=== PATIENT | female | born 1935 | race Caucasian/White ===

== ENCOUNTER 2018-12-13 11:48 | Inpatient (IN) | payer MEDICARE, BC ==
[~2018-12-13] VITALS: Ht 162.6 cm; Wt 70.7 kg
[2018-12-13] MEDS ORDERED: PROZAC20 MG PO (11:56)
[2018-12-13] MEDS ORDERED: HALCION0.25 MG PO (11:57)
[2018-12-13] MEDS ORDERED: GABAPENTIN100 MG PO (11:57)
[2018-12-13] MEDS ORDERED: NORVASC5 MG PO (11:57)
[2018-12-13] MEDS ORDERED: BAYER CHEWABLE81 MG PO (11:57)
[2018-12-13] MEDS ORDERED: VITAMIN D2000 UNIT PO (11:58)
[2018-12-13] MEDS ORDERED: PRAVACHOL20 MG PO (11:58)
[2018-12-13] MEDS ORDERED: PROBIOTIC1 EAC1 PO (11:58)
[2018-12-13] MEDS ORDERED: MAGNESIUM OXID250 MG PO (11:58)
[2018-12-13 12:20] VITALS: BP 189/80
[2018-12-13 12:23] LABS: BASOPHILS 0.4 % (0-2); EOSINOPHILS 0.3 % (0-7); HEMATOCRIT 44.7 % (36.0-48.0); HEMOGLOBIN 15.5 g/dL (12-16); IMMATURE GRANULOCYTES 0.3 % (0-5); LYMPHOCYTES 20.4 % (15-50); MCH 31.8 pg (26.0-34.0); MCHC 34.7 g/dL (31.0-37.0); MCV 91.6 fL (80.0-100.0); MEAN PLATELET VOLUME 8.7 fL (7.4-10.4); MONOCYTES 6.3 % (2-11); NEUTROPHILS 72.3 % (40-80); PLATELET COUNT 342 10x3/uL (130-400); RBC 4.88 10x6/uL (4.00-5.40); RDW 12.6 % (11.5-14.5); WBC 7.8 10x3/uL (4.8-10.8)
[2018-12-13 12:38] LABS: ALBUMIN 4.2 g/dL (3.4-5.0); ANION GAP 14.7 mmol/L (8-16); BILIRUBIN - TOTAL 1.12 mg/dL (0.2-1.3); CALCIUM 9.9 mg/dL (8.5-10.1); CARBON DIOXIDE 27.6 mmol/L (21.0-32.0); CREATININE - SERUM 0.9 mg/dL (0.6-1.3); POTASSIUM - SERUM 4.3 mmol/L (3.5-5.1); PROTEIN - SERUM 8.3 g/dL (6.4-8.2)
[2018-12-13 12:48] LABS: MAGNESIUM - SERUM 2.7 mg/dL (1.8-2.4); THYROID STIMULATING HORMONE 3.34 uIU/mL (0.36-3.74)
[2018-12-13 13:00] VITALS: BP 155/72
[2018-12-13 13:36] LABS: UDS - AMPHET NEGATIVE QUAL (NEGATIVE); UDS - BARB NEGATIVE QUAL (NEGATIVE); UDS - BENZO POSITIVE QUAL (NEGATIVE); UDS - COCAINE NEGATIVE QUAL (NEGATIVE); UDS - OPIATE NEGATIVE QUAL (NEGATIVE); UDS - PCP NEGATIVE QUAL (NEGATIVE); UDS - THC NEGATIVE QUAL (NEGATIVE)
[2018-12-13 13:37] LABS: APPEARANCE CLEAR (CLEAR); BILIRUBIN NEGATIVE (NEGATIVE); COLOR YELLOW (YELLOW); GLUCOSE NEGATIVE (NEGATIVE); KETONE MODERATE mg/dL (NEGATIVE); NITRITE NEGATIVE (NEGATIVE); PROTEIN NEGATIVE (NEGATIVE); UROBILINOGEN NORMAL (NORMAL)
[2018-12-13 13:40] VITALS: BP 164/74
--- NOTE | 2018-12-13 15:30 | NUR ---
The patient is awake, but she is not providing good eye contact. At this time she is speaking in third person. She realizes she needs help, but she doesn't want to admit that she is depressed. The family brings her here today because they have seen a rapid decline in her behavior. She is not sleeping, eating, or participating in any of her normal activities. The family states she did have an evaluation by Dr. Shields yesterday. She does not have a living will or a POA. Her resuscitation status is full code. She does have smone bruises on the wrists from lab draws over the past couple of days. She did provide her wedding band to her to take home. Did go over the visitation times and days and phone call times and days. Her code word is [place]. At this time she is in the dining room, she is sitting away from the other patients.
[2018-12-13 16:02] VITALS: BP 180/81; BMI 28.4
[2018-12-13] MEDS ORDERED: NEURONTIN 300300 MG PO (17:03)
[2018-12-13 17:21] LABS: CHOL - HDL RATIO 2.5 ratio (2.3-4.1); LDL-HDL RATIO 1.2 ratio (1.5-3.5)
[2018-12-13 20:00] VITALS: BP 144/74
[2018-12-13 21:30] VITALS: BMI 28.5
--- NOTE | 2018-12-13 23:08 | NUR ---
PATIENT IS STAYING TO HERSELF, COMPLIANT WITH MEDS, DENIES S/I, POOR EYE CONTACT. WILLL FOLLOW POC
[2018-12-14 06:13] LABS: BASOPHILS 0.3 % (0-2); EOSINOPHILS 0.2 % (0-7); HEMATOCRIT 39.9 % (36.0-48.0); HEMOGLOBIN 13.8 g/dL (12-16); IMMATURE GRANULOCYTES 0.3 % (0-5); LYMPHOCYTES 13.3 % (15-50); MCH 31.2 pg (26.0-34.0); MCHC 34.6 g/dL (31.0-37.0); MCV 90.3 fL (80.0-100.0); MEAN PLATELET VOLUME 8.6 fL (7.4-10.4); MONOCYTES 8.5 % (2-11); NEUTROPHILS 77.4 % (40-80); PLATELET COUNT 365 10x3/uL (130-400); RBC 4.42 10x6/uL (4.00-5.40); RDW 12.5 % (11.5-14.5); WBC 9.5 10x3/uL (4.8-10.8)
[2018-12-14 06:41] LABS: ALBUMIN 3.5 g/dL (3.4-5.0); BILIRUBIN - TOTAL 1.2 mg/dL (0.2-1.3); CALCIUM 9.1 mg/dL (8.5-10.1); CARBON DIOXIDE 23.1 mmol/L (21.0-32.0); CHOL - HDL RATIO 2.2 ratio (2.3-4.1); CREATININE - SERUM 0.9 mg/dL (0.6-1.3); POTASSIUM - SERUM 4.1 mmol/L (3.5-5.1); PROTEIN - SERUM 7.1 g/dL (6.4-8.2)
[2018-12-14 08:08] VITALS: BP 173/93
[2018-12-14 08:33] VITALS: Ht 162.6 cm; Wt 70.7 kg
--- NOTE | 2018-12-14 08:47 | NUR ---
The patient is anxious, her pulse is 112, she is not able to state how she feels except to admit that she is depressed and knows she needs help. She didn't really want to take an ativan, but did explain to her that it will help her anxiety. She said "Ok." Ativan 0.5 mg PO provided.
--- NOTE | 2018-12-14 09:40 | NUR ---
The patient is less anxious at this time. Asked her if she felt better. She said "Sleepy." She did not go to sleep.
[2018-12-14 09:56] VITALS: BP 173/93
--- NOTE | 2018-12-14 11:13 | NUR ---
B) The patient is awake, she is oriented, but she is depressed with anxiety. She does not know what she is doing, she is in a w/c because she is unsteady. She self propels. She keeps going up to the other patients and trying to straighten their blanket. I) Provide prescribed meds. R) The patient is compliant with meds. P) Continue POC.
--- NOTE | 2018-12-14 12:07 | NUR ---
The patient said "I need to take care of him." But there is no one in the direction sheis looking, she then got up quickly from the w/c and started walking into the dining room and said "I just need to help." Tried to explain to her that she did not need to help anyone that she would be ok, she just needs to give the Dr. and nurses a little time. She said "I know, I know." Asked her if it is ok to be here in the hospital to get some help and she said Well, I don't know, it's terrible." She then said "I need help, yes." Provided Ativan 0.5 mg PO
--- NOTE | 2018-12-14 13:00 | NUR ---
The patient is tearful at times and this nurse has sat with her to explain that she is in the hospital and that the Dr. will get medication to help and that she needs to be patient. She said "Yes, yes." She also said "I don't like being out of control." I said "You don't like being out of control?" She said "No, I'm not a controller."
--- NOTE | 2018-12-14 15:22 | NUR ---
Explained to the patient that the has prescribed Lexapro for her depression and she said "I'm not taking it." She looks at staff and then when staff look at her she turns her head.
[2018-12-14 20:00] VITALS: BP 150/67
--- NOTE | 2018-12-15 00:04 | NUR ---
PATIENT IS VERY CONFUSED. HALDOL AND ATIVAN GIVEN IM @ 2020 FOR SEVERE AGITATION, TOUCHING OTHER PATIENTS, PUSHING OBJECTS AROUND. GOOD RESULTS. WILL MONITOR
[2018-12-15 07:00] VITALS: BP 163/79
--- NOTE | 2018-12-15 09:40 | PSY ---
PATIENT NAME:TOBY KIM MEDICAL RECORD: [id number] : 37 LOCATION:[facility] ADMISSION DATE: 12/13/18 ACCOUNT: [id number] PSYCHIATRIC EVALUATION DATE OF EVALUATION: 12/14/18 IDENTIFYING DATA: The patient is 83 years old and she is admitted to the hospital on a voluntary basis. CHIEF COMPLAINT: Depression. HISTORY OF PRESENT ILLNESS: The patient is a very nice lady, who apparently has become psychotically depressed over the past couple of weeks. She has almost no ability to give me useful information and is talking in a very disorganized way. I did talk to her and daughter, who gave me excellent history and indicate that she was fine just a few weeks ago and that she has gradually become profoundly depressed. She does endorse numerous neurovegetative depressive symptoms. I have questioned the family carefully about evidence of a gradual development of dementia and they have denied these questions in a way that I am fairly comfortable is accurate and not deceived by their own closeness to her and their inability to assess the situation. PAST MEDICAL HISTORY: Significant for hypercholesterolemia and hypertension. PAST PSYCHIATRIC HISTORY: Significant for ongoing problems with depression that up to this point have been relatively mild and treated on an outpatient basis. FAMILY HISTORY: Significant for hypertension and cardiovascular disease. ALLERGIES: CODEINE AND NAPROXEN. CURRENT MEDICATIONS: Include Pravachol, Neurontin, aspirin, Halcion, Norvasc, and Prozac. SOCIAL HISTORY: The patient is . She has 1 daughter. She is a retired preschool disability teacher. She has no history of drug or alcohol abuse and apparently functioned reasonably well socially and occupationally. MENTAL STATUS EXAMINATION: The patient is awake, alert and oriented to person only. Thought processes are disorganized. Memory, concentration, and abstraction abilities are severely impaired. She denies that she would seek to harm herself or others as well as psychotic symptoms. ASSETS: Supportive family members. LIABILITIES: Limited insight. DIAGNOSTIC IMPRESSION: AXIS I: Major depression, severe, recurrent, with psychotic features. AXIS II: None. AXIS III: Hypertension and hypercholesterolemia. AXIS IV: Moderate. AXIS V: Global assessment of functioning is 25. PLAN: At this time, the patient is admitted to the hospital for comprehensive medical, psychological, and social evaluation. She will be treated with both mood stabilizing and memory enhancing medications. Her long-term prognosis is guarded. TRANSINT:[id number] Voice Confirmation ID: [id number] DOCUMENT ID: [id number] OSWALDO WELLS MD at 0940 CC: [id number] DICTATION DATE: 12/14/18 1223 TREE LOADER MEAT: 12/14/18 1453 ADM IN [place] [id number] [place] [address]
--- NOTE | 2018-12-15 14:16 | NUR ---
PT IS AWAKE AND ORIENTED TO PERSON. PT IS VERY CONFUSED. PT IS MED COMPLIANT WITH MEDICATIONS AFTER MUCH ENCOURAGEMENT FROM NURSING STAFF. CALM AND COOPERATIVE WITH ASSESSMENT. REDIRECT AND REORIENT NEEDED. FALL PRECAUTIONS IN PLACE. WILL CPOC.
[2018-12-15 20:08] VITALS: BP 182/71
--- NOTE | 2018-12-15 21:45 | NUR ---
RECEIVED IN DAYROOM. SITTING IN A CHAIR WITH PEERS AT HER SIDE. CALM AND COOPERATIVE WITH CARE AND ASSESSMENT. CONFUSED. REDIRECT AND REORIENT NEEDED. CONTINUES TO SIT CALMLY. CONTINUE PLAN OF CARE
[2018-12-16 07:00] VITALS: BP 102/75
--- NOTE | 2018-12-16 11:33 | NUR ---
PT ALERT AND ORIENTED TO PERSON ONLY. PT. IS CALM AND COOPERATIVE WITH ASSESSMENT. MED COMPLIANT. PT IS VERY CONFUSED. PT TALKS TO UNSEEN OTHERS AT TIMES. PT MOOD IS IRRITABLE. REDIRECT AND REORIENT NEEDED. FALL PRECAUTIONS IN PLACE. WILL CPOC.
--- NOTE | 2018-12-16 11:45 | NUR ---
PATIENT AGITATED, ARGUMENTATIVE, ACCUSING STAFF OF BEING MURDERERS, DELUSIONAL, SPEAKING TO UNSEEN INDIVIDUALS. MARCHED TO GLASS EXIT DOOR AND BEGAN KICKING IT REPEATEDLY. DIFFICULT TO RE-DIRECT.
--- NOTE | 2018-12-16 12:11 | NUR ---
PT IS VERY AGGRESSIVE WITH STAFF. KICKING AND HITTING DOORS. UNABLE TO REDIRECT PT AT THIS TIME. PRN ATIVAN 0.5MG IM AND HALDOL 2MG IM GIVEN PER ORDER. WILL CONTINUE TO MONITOR Q 15 MINUTES FOR SAFETY.
--- NOTE | 2018-12-16 13:00 | NUR ---
PRN MED EFFECTIVE AT THIS TIME. NO AGGRESSION NOTED AT THIS TIME. PT IS SITTING IN DAY ROOM WITH PEERS CALMLY. WILL CONTINUE TO MONITOR Q 15 MINUTES FOR SAFETY.
--- NOTE | 2018-12-16 14:35 | PN ---
PATIENT:TOBY KIM MEDICAL RECORD: [id number] LOCATION:[facility] ADMISSION DATE: 12/13/18 PROGRESS NOTE DATE OF SERVICE: 12/15/2018 SUBJECTIVE: The patient's case was discussed with staff. She has no new complaint. OBJECTIVE: The patient is fairly limited in her insight. She is not making sense, but she is making better sense than she was yesterday. ASSESSMENT: Major depression with psychosis. PLAN: Current medicines have been reviewed. I am going to increase her dose of Zyprexa slightly. She will be monitored for clinical changes associated with its use. TRANSINT:[id number] Voice Confirmation ID: [id number] DOCUMENT ID: [id number] OSWALDO WELLS MD at 1435 CC: [id number] DICTATION DATE: 12/15/18 1015 MAGNETIC DOCTOR: 12/15/18 1406 ADM IN [place] [id number] [place] [id number]
--- NOTE | 2018-12-16 18:43 | NUR ---
PATIENT'S PHONED TO CHECK ON PATIENT. PATIENT IS RESTING QUIETLY IN RECLINER, EYES CLOSED.
--- NOTE | 2018-12-16 21:59 | NUR ---
RECEIVED IN DAYROOM. RESTING IN RECLINER WITH EYES OPEN. CALM AND COOPERATIVE WITH CARE AND ASSESSMENT. NO SIGNS OF HALLUCINATIONS. REDIRECT AND REORIENT NEEDED. RESTING IN BED WITH EYES OPEN AT THIS TIME. CONTINUE PLAN OF CARE.
[2018-12-17 02:22] VITALS: BP 134/54
[2018-12-17 08:00] VITALS: BP 148/84
--- NOTE | 2018-12-17 09:41 | PN ---
PATIENT:TOBY KIM MEDICAL RECORD: [id number] LOCATION:[facility] ADMISSION DATE: 12/13/18 PROGRESS NOTE DATE OF SERVICE: 12/16/2018 SUBJECTIVE: The patient's case was discussed with staff. She has no new complaint. OBJECTIVE: The patient has a depressed mood, but is better organized today. She denies that she would seek to harm herself, but she is not making very good eye contact when she does so. ASSESSMENT: Major depression. PLAN: The patient's Effexor is going to be increased to 75 mg twice daily. Her long-term prognosis is guarded. Followup will be with her primary care physician and an outpatient psychiatrist when she is discharged. TRANSINT:[id number] Voice Confirmation ID: [id number] DOCUMENT ID: [id number] OSWALDO WELLS MD at 0941 CC: [id number] DICTATION DATE: 12/16/18 1444 SHRIMP PICKER: 12/16/18 1456 ADM IN [place] [id number] [place] [address]
--- NOTE | 2018-12-17 09:56 | NUR ---
Nutrition follow up Cardiac diet with 0-25% intake of meals Will add Ensure Recommend diet liberalization to regular RD following
--- NOTE | 2018-12-17 16:18 | NUR ---
PT IS ALERT AND ORIENTED TO PERSON ONLY. CALM AND COOPERATIVE WITH ASSESSMENT. MED COMPLIANT. REDIRECT AND REORIENT NEEDED. FALL PRECAUTIONS IN PLACE. WILL CPOC.
--- NOTE | 2018-12-17 23:46 | NUR ---
RECEIVED IN PATIENT ROOM. RESTING IN BED WITH EYES OPEN. CALM AND COOPERATIVE WITH CARE AND ASSESSMENT. NO SIGNS OF HALLUCINATIONS. REDIRECT AND REORIENT NEEDED. RESTING IN BED WITH EYES CLOSED AT THIS TIME. CONTINUE PLAN OF CARE.
[2018-12-18 09:00] VITALS: BP 166/80
--- NOTE | 2018-12-18 12:50 | PN ---
PATIENT:TOBY KIM MEDICAL RECORD: [id number] LOCATION:[facility] ADMISSION DATE: 12/13/18 PROGRESS NOTE DATE OF SERVICE: 12/17/2018 SUBJECTIVE: The patient's case was discussed with staff. She has no new complaint. OBJECTIVE: The patient is still minimally verbal. She is disorganized in her thought processes, but makes no statements about wanting to hurt herself. ASSESSMENT: Major depression. PLAN: Current medicines and therapies have been reviewed. Both will be maintained. Her long-term prognosis is guarded. TRANSINT:[id number] Voice Confirmation ID: [id number] DOCUMENT ID: [id number] OSWALDO WELLS MD at 1250 CC: [id number] DICTATION DATE: 12/17/18 1156 CLINIC SUPERVISOR: 12/17/18 1201 ADM IN [facility] [address] [place] [address]
--- NOTE | 2018-12-18 19:07 | NUR ---
IS ORIENTED TO SELF .COMPLIANT WITH STAFF AND MEDS.NO AGGRESSION OBSERVED.WILL CONTINUE WITH PLAN OF CARE,MONITOR FOR CHANGES AND SAFETY.
[2018-12-18 20:00] VITALS: BP 127/88
--- NOTE | 2018-12-18 21:17 | NUR ---
RECEIVED IN DAYROOM. WATCHING TV. CALM AND COOPERATIVE WITH CARE AND ASSESSMENT. NO AGGRESSIVE BEHAVIORS. IN BETTER MOOD THIS EVENING. REDIRECT AND REORIENT NEEDED. CONTINUES TO WATCH TV AT THIS TIME. CONTINUE PLAN OF CARE.
[2018-12-19 08:37] VITALS: BP 132/61
--- NOTE | 2018-12-19 15:03 | PN ---
PATIENT:TOBY KIM MEDICAL RECORD: [id number] LOCATION:[facility] ADMISSION DATE: 12/13/18 PROGRESS NOTE DATE OF SERVICE: 12/18/2018 SUBJECTIVE: The patient's case was discussed with staff. She has no new complaint. OBJECTIVE: The patient is in good behavioral control. She is depressed, but showing improvement. She sleeps a fair amount and I think that is related to her Zyprexa and gabapentin. At this point, I am going to maintain her current medicines. ASSESSMENT: Major depression. PLAN: Current medicines and therapies will be maintained. Long-term prognosis is guarded. TRANSINT:[id number] Voice Confirmation ID: [id number] DOCUMENT ID: [id number] OSWALDO WELLS MD at 1503 CC: [id number] DICTATION DATE: 12/18/18 1540 AMMONIUM HYDROXIDE OPERATOR: 12/18/18 2343 ADM IN [facility] [address] [place] [address]
--- NOTE | 2018-12-19 16:21 | NUR ---
IS ORIENTED X 3.WHEN ASKED IF SHE FEELS DEPRESSED STATES"I DON'T KNOW HOW I FEEL WITH THE MEDICINE I'M TAKING".HAS FLAT AFFECT.IS COMPLIANT WITH STAFF AND MEDS.WILL CONTINUE WITH PLAN OF CARE,MONITOR FOR CHANGES AND SAFETY.
[2018-12-19 20:00] VITALS: BP 189/83
--- NOTE | 2018-12-19 20:41 | NUR ---
PT. IS VERY CONFUSED, LABILE, TEARFUL AT TIMES, COMPLIANT WITH MEDS, WILL FOLLOW POC
[2018-12-20 09:26] VITALS: BP 141/73
--- NOTE | 2018-12-20 10:52 | NUR ---
SITTING IN CHAIR IN DINING ROOM, INAPPROPRIATE LAUGHING. CONTINUOUSLY KNOCKING ON TABLE WITH EYES CLOSED, OCCASIONALLY MUMBLE TO HERSELF.
--- NOTE | 2018-12-20 11:03 | NUR ---
SITTING AT DINING ROOM TABLE. MIMICING PLAYING A REPETITIVE TUNE ON THE PIANO, HUMMIMG THE FAST-PACED TUNE. THIS BEHAVIOR WNENT ON FOR APPROX 15 MINUTES UNTIL STAFF MOVED HER TO THE DAYROOM FOR GROUP.
--- NOTE | 2018-12-20 12:55 | NUR ---
The patient continues with bizarre behavior. She is banging on the table as though it were a piano and making up rhymes as she goes and cursing. She did get louder when the medical Dr. Dr. Flores walked through. Her called and wanted to know if an employment law attorney has seen her and he wonders what she is doing and what we are doing to help her each day. Did look at all of her lab and let him know it is all wnl. Also explained to him that it takes three weeks for an antidepressant to begin working fully. Did let him know she has groups and activities, but at this point she is disinterested. Did let him know the treatment team will meet today and we will discuss her case and I can better let him know what the team and 's thoughts. Also he wanted to know if he should come and visit or stay away. Again I asked him to allow me to observe the patient today and meet with the team and if he will call tomorrow at about the same time we will be able to let him know. He verbalized understanding, but also feels upset and concerned and worried.
--- NOTE | 2018-12-20 15:53 | PN ---
PATIENT:TOBY KIM MEDICAL RECORD: [id number] LOCATION:[facility] ADMISSION DATE: 12/13/18 PROGRESS NOTE DATE OF SERVICE: 12/19/2018 SUBJECTIVE: The patient's case was discussed with staff. She has no new complaint. OBJECTIVE: The patient is tolerating her medications reasonably well. She has limited insight about her situation. She has not shown any significant improvement. ASSESSMENT: Major depression. PLAN: The patient will be maintained on current medicines. Staff is reporting what sounds like classic sundowning behavior. This would be inconsistent with her depression, but consistent with dementia. Interestingly, the family has called and asked questions about whether or not we think she is demented, which is confusing to me because I spoke to both the and daughter at the time of admission and both insisted strongly that she had no evidence of cognitive decline and that this change is all sudden and occurred in the past few weeks. At this point, I am going to just increase her gabapentin and monitor her changes. I am not ruling out the possibility of adding a dementia diagnosis to her. TRANSINT:[id number] Voice Confirmation ID: [id number] DOCUMENT ID: [id number] OSWALDO WELLS MD at 1553 CC: [id number] DICTATION DATE: 12/19/18 1614 SUPERVISOR PAINT DEPARTMENT: 12/19/18 1728 ADM IN [place] [id number] [place] [address]
--- NOTE | 2018-12-20 17:40 | NUR ---
The patient continues with bizarre behaviors and she is singing, making silly sounds and she is repeating words. She is unable to self calm. Provided Ativan 0.5 mg PO.
--- NOTE | 2018-12-20 18:26 | NUR ---
PATIENT CONT SINGING TUNES, AGITATING OTHER PATIENTS. INAPPROPRIATE LAUGHING NOTED.
[2018-12-20 20:03] VITALS: BP 144/69
--- NOTE | 2018-12-20 20:42 | NUR ---
PATIENT IS CONFUSED, HYPERVERBAL(SINGING NON-STOP) PRETENDING TO PLAY THE PIANO. COMPLIANT WITH MEDS, (CRUSHED). DIFFICULT TO REDIRECT AT TIMES, NOT SURE IF SHE CAN VOICE NEEDS AT THIS TIME. HAS TO HAVE HELP GETTING INTO BED.
--- NOTE | 2018-12-21 11:29 | PN ---
PATIENT:TOBY KIM MEDICAL RECORD: [id number] LOCATION:[facility] ADMISSION DATE: 12/13/18 PROGRESS NOTE DATE OF SERVICE: 12/20/2018 SUBJECTIVE: The patient's case was discussed with staff. She has no new complaint. OBJECTIVE: The patient is in good behavioral control, but very bizarre and acting in an unusual manner. She is playing a pretend piano and singing. She clearly is not in touch with reality. ASSESSMENT: Major depression with psychosis. PLAN: The patient's Zyprexa is going to be discontinued. I am going to treat her with a low dose of Risperdal. Her long-term prognosis is guarded. She will be monitored for clinical changes associated with the medication. TRANSINT:[id number] Voice Confirmation ID: [id number] DOCUMENT ID: [id number] OSWALDO WELLS MD at 1129 CC: [id number] DICTATION DATE: 12/20/18 1740 ANGULAR JS DEVELOPER: 12/20/18 2132 ADM IN [place] [id number] [place] [address]
[2018-12-21 11:51] VITALS: BP 146/83
--- NOTE | 2018-12-21 18:58 | NUR ---
PATIENT PACING AROUND DAY AREA. RESP EVEN AND NONLABORED. NO ACUTE DISTRESS NOTED. PATIENT IS EXHIBITING BIZARRE BEHAVIOR. PT IS ORIENTED AT TIMES. CONFUSION NOTED. AMBULATES. WILL CONT PLAN OF CARE.
[2018-12-21 20:42] VITALS: BP 166/77
--- NOTE | 2018-12-21 21:04 | NUR ---
PATIENT IS CONFUSED, LABILE, LAUGHS THEN CRIES, HUGS RANDOM PEOPLE. COMPLIANT WITH MEDS. CAN DO SELF CARE WITH GUIDANCE.
[2018-12-22 07:00] VITALS: BP 174/71
--- NOTE | 2018-12-22 08:55 | NUR ---
REC'D PATIENT SITTING IN CHAIR IN DINING AREA. PT IS LABILE. IN HIGH MOODS LAUGHING AND SINGING. AT TIMES PATIENT IS DOWN AND CRYING, NONSPEAKING. NO ACUTE DISTRESS NOTED. MED COMPLIANT. WILL AMBULATE AT TIMES AND WONT AMBULATE AT TIMES. WILL CONT WITH PLAN OF CARE.
--- NOTE | 2018-12-22 11:00 | NUR ---
PT CALLED PASSWORD GIVEN. ASKED ABOUT PATIENTS NIGHT, BEHAVIORS, IMPROVEMENT, MEDICATIONS AND HOW HER NIGHT WENT. NURSE ATTEMPTED TO EXPLAINED THAT PATIENT DID NOT EAT BREAKFAST REFUSED, MEDICATION WAS TAKEN, INCREASE ON RISPERDAL 1 MG BID, NO IMPROVEMENT IN CONDITION FROM VISITATION ON THE PREVIOUS DAY, AND SLEEPING PATTERNS. ASKED TO SPEAK WITH PT RN OR THE DOCTOR. THIS NURSE EXPLAINED THAT I WAS THE PT RN FOR THE DAY. ASKED IF THERE WAS ANYTHING THAT COULD CAUSE HER TO ACT THIS WAY? ANYTHING IN HER MRI, CAT SCAN, OR LABS? THIS NURSE WENT OVER LABS WITH . PATIENT KIDNEYS, U/A WAS CLEAR. NO MRI OR CAT SCAN COMPLETED. EXPLAINED THAT HER CATSCAN WAS CLEAR. HE ASKED IF SHE HAD A MENTAL BREAKDOWN OR IF IT WAS THE DEPRESSION. NURSE EXPLAINED THAT EVERYTHING WAS CLEAR SO NO UTI OR OTHER HEALTH ISSUE NOTED. STATED "I THINK IT'S ABOUT TIME FOR A CONFERENCE. I HAVEN'T SPOKEN WITH A DOCTOR SINCE SHES BEEN THERE AND THATS OVER A WEEK." NURSE EXPLAINED WE COULD TAKE HIS NUMBER AND ASKED THE DOCTOR TO CALL HIM AND IF HE WAS UNABLE. HE COULD CALL THE [employer] ON SUNDAY AND MAYBE THEY COULD ARRANGE SOME TYPE OF CONVERSION. VERBALIZIED UNDERSTANDING. WILL PASS ON TO NEXT SHIFT AND DOCTOR.
--- NOTE | 2018-12-22 12:15 | PN ---
PATIENT:TOBY KIM MEDICAL RECORD: [id number] LOCATION:[facility] ADMISSION DATE: 12/13/18 PROGRESS NOTE DATE OF SERVICE: 12/21/2018 SUBJECTIVE: The patient's case was discussed with staff. She has no new complaint. OBJECTIVE: The patient is tolerating her medicines well, but she appears more psychotic than she did yesterday. ASSESSMENT: Major depression with psychosis. PLAN: The patient will be maintained on Effexor, but I am going to increase the dose to 100 mg twice daily. She will be monitored for clinical changes associated with this. Her long-term prognosis is guarded. In addition to the increase in her Effexor, I am going to increase the dose of the Risperdal to 1 mg twice daily. Risperdal is being given for her underlying psychotic symptoms. She will be monitored for clinical changes associated with its use. Her long-term prognosis is guarded. The patient is going to have her gabapentin or Neurontin discontinued and I am going to start her on Depakote. Depakote is being used to treat her underlying mood lability. She will be monitored for clinical changes associated with its use. TRANSINT:[id number] Voice Confirmation ID: [id number] DOCUMENT ID: [id number] OSWALDO WELLS MD at 1215 CC: [id number] DICTATION DATE: 12/21/18 1258 SHOP REPAIRER: 12/21/18 1345 ADM IN [place] [id number] [place] [address]
--- NOTE | 2018-12-22 19:43 | NUR ---
THIS NURSE SPOKE WITH PATIENT DURING VISITATION THIS SHIFT. PATIENT WAS AT THE TABLE WITH WITH HEAD FLAT ON THE TABLE. WAVED NURSE OVER TO SPEAK WITH HIM. WANTED TO KNOW ABOUT PATIENT PROGRESS AND COMMUNICATION. NURSE WENT OVER NOTES, MEDICATION AND HER DAILY PROGRESS. BECAME UPSET STATING "I'M ABOUT TO GET UPSET WITH THE LACK OF COMMUNICATION WITH ME AND STAFF HERE." THIS NURSE EXPLAINED WE TALK WITH HIM DAILY ON PROGRESS. I SPOKE WITH HIM EARLIER IN THE SHIFT ABOUT PATIENT PROGRESS, NOTES AND MEDICATION. HE STATED THAT WAS NOT ENOUGH HE HAS NOT SPOKE WITH A DOCTOR OR ANYTHING SINCE SHE HAS BEEN IN THE UNIT. THIS NURSE ASKED THE DAY OF ADMISSION IF HE SPOKE WITH THE DOCTOR AND HE STATED "YES, I DID. IN A GENERAL MANNER. I DIDN'T TALK TO HIM ENOUGH TO UNDERSTAND THE PROCEDURE OR ANYTHING." THIS NURSE ASKED WHAT EXACTLY WHAT MATERIAL HE WAS WANTING TO KNOW. HE WANTED TO KNOW HER PROGNOSIS, WHAT IS THE WRONG WITH HER, AND WHAT ARE Y'ALL DOING TO HELP HER. THIS NURSE EXPLAINED THE INFORMATION HE ASKED FOR. HE VERBALIZIED UNDERSTANDING OF INFORMATION. AT ONE POINT HE BECAME UPSET STATING WE WERE NOT COMMUNICATING WITH HIM AND IT WAS MAKING HIM UPSET. THIS NURSE EXPLAINED TO THE COULD DISCHARGE PATIENT IF HE FELT TREATMENT WAS INADEQUATE. REFUSED TO TAKE PATIENT STATING THE TREATMENT WAS ADEQUATE. THIS NURSE NOTIFIED DOCTOR WELLS OF PATIENT CONCERN. WILL PASS TO NEXT SHIFT.
[2018-12-22 20:56] VITALS: BP 172/82
--- NOTE | 2018-12-22 22:46 | NUR ---
PATIENT IS CONFUSED, WALKS AROUND AIMLESSLY, LABILE, COMPLIANT WITH MEDS. HAS A HARD TIME "FINDING HER WORDS". WILL FOLLOW POC
[2018-12-23 07:00] VITALS: BP 153/87
--- NOTE | 2018-12-23 07:30 | NUR ---
PT IS ALERT AND ORIENTED TO PERSON ONLY. CALM AND COOPERATIVE WITH ASSESSMENT. PT TALKING TO UNSEEN OTHERS AT THIS TIME. PT IS VERY CONFUSED. PT CAN BECOME AGGRESSIVE WITH STAFF WITH REDIRECTION. REDIRECT AND REORIENT NEEDED. MED COMPLIANT. FALL PRECAUTIOSN IN PLACE. WILL CPOC.
--- NOTE | 2018-12-23 14:32 | PN ---
PATIENT:TOBY KIM MEDICAL RECORD: [id number] LOCATION:[facility] ADMISSION DATE: 12/13/18 PROGRESS NOTE DATE OF SERVICE: 12/22/2018 SUBJECTIVE: The patient's case was discussed with staff. She has no new complaint. OBJECTIVE: The patient is in good behavioral control with poor insight about her condition. She tolerates her medicines well. She is behaving bizarrely and is disorganized. ASSESSMENT: Major depression with psychosis. PLAN: Current medicines and therapies have been reviewed and will be maintained. Her long-term prognosis is guarded. TRANSINT:[id number] Voice Confirmation ID: [id number] DOCUMENT ID: [id number] OSWALDO WELLS MD at 1432 CC: [id number] DICTATION DATE: 12/22/18 1257 RUBBER COMPOUNDER FORMULATOR: 12/22/18 1441 ADM IN [place] [id number] [place] [id number]
[2018-12-23 20:00] VITALS: BP 154/72
--- NOTE | 2018-12-23 20:51 | NUR ---
RECEIVED IN DAYROOM. RESTING IN A CHAIR WITH PEERS AT HER SIDE. CALM AND COOPERATIVE WITH CARE AND ASSESSMENT. ENCOURAGE TO EXPRESS NEEDS. CONTINUES TO REST QUIETLY. CONTINUE PLAN OF CARE
[2018-12-24 08:30] VITALS: BP 166/77
--- NOTE | 2018-12-24 10:26 | NUR ---
Nutrition follow up AHA diet with 40% average po intake Weight 146lb Ensure ordered on all trays REC: Consider liberalized diet RD following
--- NOTE | 2018-12-24 11:00 | NUR ---
RESTING QUIETLY IN DINING ROOM, CALM, QUIET, CONFUSED, DEPRESSED. MEDS ADMIN PER MED NURSE WITH COMPLETE MED COMPLIANCE NOTED. COOPERATIVE WITH CARE. CONT POC INCLUDING MEDS AND GROUP THERAPY DIRECTED.
--- NOTE | 2018-12-24 13:17 | PN ---
PATIENT:TOBY KIM MEDICAL RECORD: [id number] LOCATION:[facility] ADMISSION DATE: 12/13/18 PROGRESS NOTE DATE OF SERVICE: 12/23/2018 SUBJECTIVE: The patient's case was discussed with staff. She has no new complaint. OBJECTIVE: The patient is clearly psychotic and disorganized. ASSESSMENT: Major depression with psychoses. PLAN: The patient's Depakote is going to be increased to 500 mg twice daily. She will be monitored for clinical changes associated with its use. Her long-term prognosis is guarded. TRANSINT:[id number] Voice Confirmation ID: [id number] DOCUMENT ID: [id number] OSWALDO WELLS MD at 1317 CC: [id number] DICTATION DATE: 12/23/18 1626 REFINING ENGINEER: 12/23/18 191 ADM IN [facility] [address] [place] [address]
[2018-12-24 20:00] VITALS: BP 137/64
--- NOTE | 2018-12-24 21:34 | NUR ---
RECEIVED IN DAYROOM. SITTING IN A CHAIR WITH PEERS AT HER SIDE. CALM AND COOPERATIVE WITH CARE AND ASSESSMENT. NO SIGNS OF AGGRESSION. REDIRECT AND REORIENT NEEDED. CONTINUE TO REST QUIETLY. CONTINUE PLAN OF CARE
[2018-12-25 10:29] VITALS: BP 99/60
--- NOTE | 2018-12-25 13:27 | PN ---
PATIENT:TOBY KIM MEDICAL RECORD: [id number] LOCATION:[facility] ADMISSION DATE: 12/13/18 PROGRESS NOTE DATE OF SERVICE: 12/24/2018 SUBJECTIVE: The patient's case was discussed with staff. She has no new complaint. OBJECTIVE: The patient is in good behavioral control and is a little less disorganized than she was yesterday. ASSESSMENT: Major depression. PLAN: Current medicines have been reviewed and will be maintained. Long-term prognosis is guarded. TRANSINT:[id number] Voice Confirmation ID: [id number] DOCUMENT ID: [id number] OSWALDO WELLS MD at 1327 CC: [id number] DICTATION DATE: 12/24/18 1343 COLOR CONTROL SUPERVISOR: 12/24/18 1413 ADM IN [place] [id number] [place] [address]
--- NOTE | 2018-12-25 18:33 | NUR ---
ORIENTED TO SELF ONLY.OBSERVED WITH VISUAL HALLUCINATIONS.COMPLIANT WITH MEDS AND STAFF.WILL CONTINUE WITH PLAN OF CARE,MONITOR FOR CHANGES AND SAFETY.
[2018-12-25 21:07] VITALS: BP 180/80
--- NOTE | 2018-12-25 21:20 | NUR ---
PT. IS CONFUSED HOWEVER WITH SOME IMPROVEMENT NOTED OVER THE LAST COUPLE OF DAYS, FOLLOWING DIRECTION BETTER. COMPLIANT WITH MEDS, NO ADVERSE REACTION NOTED. WILL FOLLOW POC
--- NOTE | 2018-12-26 13:18 | NUR ---
REC'D PATIENT SITTING IN CHAIR WAITING BREAKFAST. RESP EVEN AND NONLABORED. NO ACUET DISTRESS NOTED. CONFUSION NOTED AT TIMES. PT IS CALM AND PLESANT. NO BEHAVIORS NOTED. PT AMBULATES TODAY. WILL CONT PLAN OF CARE.
--- NOTE | 2018-12-26 14:55 | PN ---
PATIENT:TOBY KIM MEDICAL RECORD: [id number] LOCATION:[facility] ADMISSION DATE: 12/13/18 PROGRESS NOTE DATE OF SERVICE: 12/25/2018 SUBJECTIVE: The patient's case was discussed with staff. She has no new complaint. OBJECTIVE: The patient denies intent to harm herself or others. She is tolerating her medicines well. ASSESSMENT: Major depression. PLAN: I called the yesterday, there was no answer and no voicemail. I called the daughter and she did not answer and I left a voicemail. I called her back today and she did not answer and I left another voicemail. TRANSINT:[id number] Voice Confirmation ID: [id number] DOCUMENT ID: [id number] OSWALDO WELLS MD at 1455 CC: [id number] DICTATION DATE: 12/25/18 1356 POOL NURSE: 12/25/18 1430 ADM IN [place] [place] [address]
--- NOTE | 2018-12-26 17:59 | NUR ---
PATIENT SITTING ON COUCH SOCILAZING WITH PEERS. RESP EVEN AND NONLABORED. NO ACUTE DISTRESS NOTED AT THIS TIME. PT IS CONFUSED MORE THAN OTHERS. MED COMPLIANT. PT IS NOT LABILE THIS SHIFT. CALM AND SPEAKS WITH STAFF IN A WAY STAFF CAN UNDERSTAND. AMBULATES WITH LITTLE ASSISTANCE WITH ADLS. PT EATING BETTER THIS SHIFT. WILL CONT PLAN OF CARE.
[2018-12-26 20:43] VITALS: BP 122/58
--- NOTE | 2018-12-26 22:27 | NUR ---
PATIENT IS CONFUSED ABOUT PLACE, TIME AND SITUATION. COMPLIANT WITH MEDS, HAS TO BE DIRECTED AND REDIRECTED. WILL FOLLOW POC
--- NOTE | 2018-12-27 08:19 | NUR ---
REC'D PATIENT WALKING IN DAY AREA. NO ACUTE DISTRESS NOTED. RESP EVEN AND NONLABORED. CONFUSION NOTED. ALERT TO SELF. AMBULATES. MED COMPLIANT. WILL CONT PLAN OF CARE.
[2018-12-27 09:40] VITALS: BP 158/69
--- NOTE | 2018-12-27 15:38 | PN ---
PATIENT:TOBY KIM MEDICAL RECORD: [id number] LOCATION:[facility] ADMISSION DATE: 12/13/18 PROGRESS NOTE DATE OF SERVICE: 12/26/2018 SUBJECTIVE: The patient's case was discussed with staff. She has no new complaint. OBJECTIVE: The patient had a very rational conversation with me today. I believe she is significantly improving. She denies intent to harm herself or others. She is tolerating her medicines well. She will have a Depakote level checked today. TRANSINT:[id number] Voice Confirmation ID: [id number] DOCUMENT ID: [id number] OSWALDO WELLS MD at 1538 CC: [id number] DICTATION DATE: 12/26/18 1522 CARPENTER ASSEMBLER: 12/26/18 1548 ADM IN [facility] [address] [place] [address]
--- NOTE | 2018-12-27 18:42 | NUR ---
PATIENT SITTING IN CHAIR SOCIALIZING WITH PEERS. RESP EVEN AND NONLABORED. NO DISTRESS NOTED. MEDICATION COMPLIANT. PT IS CONVERSATING BETTER WITH NURSES AND PEERS. EATING BETTER AT MEALS. AMBULATES. INDEPENDENT WITH ADLS. NO NEW MEDICATIONS ORDERS. WILL CONT PLAN OF CARE.
[2018-12-27 20:28] VITALS: BP 130/60
--- NOTE | 2018-12-28 04:16 | NUR ---
B.) Patient is alert and oriented to Person only. She is soft spoken and ambulates by herself. Patient had difficulty swallowing her medications. I.) Provided routine PM Medications, Crushed her medications and administered with applesauce. R.) Compliant with PM medications. P.) Continue with Plan of Care
[2018-12-28 09:29] VITALS: BP 110/56
--- NOTE | 2018-12-28 10:30 | NUR ---
RECEIVED PATIENT IN DINING ROOM FOR B'FAST, ALERT, CALM, VERY CONFUSED. DIFFICULTY FOLLOWING DIRECTIONS. MEDS ADMIN PER ORDERS. PATIENT CANNOT COMPREHEND HOW TO SWALLOW HER MEDS WHOLE, THEREFORE MEDS CRUSHED AND MIXED WITH PUDDING. AT WHICH TIME, PATIENT CHEEKED MEDS AND EVENTUALLY SPIT SOME OF THE MIXTURE OUT. PRESENT FOR GROUP BUT QUITE CONFUSED. CONT POC INCLUDING MEDS AND GROUP THERAPY DIRECTED.
--- NOTE | 2018-12-28 11:54 | PN ---
PATIENT:TOBY KIM MEDICAL RECORD: [id number] LOCATION:[facility] ADMISSION DATE: 12/13/18 PROGRESS NOTE DATE OF SERVICE: 12/27/2018 SUBJECTIVE: The patient's case was discussed with staff. She has no new complaint. OBJECTIVE: The patient is significantly better. She is making good eye contact. Her thought processes are not completely organized but they certainly are coherent enough to be reasonably followed. She denies that she wants to hurt herself. She denies overt psychotic symptoms. ASSESSMENT: Major depression with psychosis. PLAN: Current medicines have been reviewed and will be maintained. Her long-term prognosis is guarded. Both supportive and educational interventions were made and I anticipate she can be transitioned out of the hospital after the weekend if this level of improvement continues. She does have a therapeutic Depakote level of 52. TRANSINT:[id number] Voice Confirmation ID: [id number] DOCUMENT ID: [id number] OSWALDO WELLS MD at 1154 CC: [id number] DICTATION DATE: 12/27/18 1634 RIVETER HAND: 12/27/18 2304 ADM IN [facility] [address] [place] [address]
[2018-12-28 22:04] VITALS: BP 149/69
--- NOTE | 2018-12-29 00:48 | NUR ---
B.) Patient is alert and very confused. I.) Provided PM Medications and reoriented often. R.) Compliant with medications. Patient remains confused despite multiple attempts to reorient. P.) Continue Plan of Care.
[2018-12-29 07:00] VITALS: BP 98/44
--- NOTE | 2018-12-29 10:00 | NUR ---
RECEIVED PATIENT IN DINING ROOM FOR B'FAST, ALERT, CALM, COOPERATIVE, VERY CONFUSED AND DELUSIONAL. MEDS ADMIN PER ORDERS WITH COMPLETE MED COMPLIANCE NOTED. CONT CONFUSION, ABLE TO RE-DIRECT. CONT POC INCLUDING MEDS AND GROUP THERAPY DIRECTED.
--- NOTE | 2018-12-29 11:00 | NUR ---
LATE ENTRY - 12/28/18 @ 1430 - PATIENT CRAWLING ON FLOOR, GOING UNDER THE TABLE IN THE DAYROOM, RESTING HER HEAD ON OTHER PATIENTS' FEET, VERY DIFFICULT TO RE-DIRECT, DELUSIONAL, VISUAL HALLUCINATIONS SEEING THINGS ON FLOOR THAT WERE NOT THERE. PLAYING IMAGINARY PIANO AT TIMES.
--- NOTE | 2018-12-29 13:01 | PN ---
PATIENT:TOBY KIM MEDICAL RECORD: [id number] LOCATION:[facility] ADMISSION DATE: 12/13/18 PROGRESS NOTE DATE OF SERVICE: 12/28/2018 SUBJECTIVE: The patient's case was discussed with staff. She has no new complaint. OBJECTIVE: The patient is in good behavioral control. She denies intent to harm herself or others. She does tolerate her medicines well. ASSESSMENT: Major depression. PLAN: I anticipate the patient can be transitioned out of the hospital soon. Her long-term prognosis is guarded. TRANSINT:[id number] Voice Confirmation ID: [id number] DOCUMENT ID: [id number] OSWALDO WELLS MD at 1301 CC: [id number] DICTATION DATE: 12/28/18 1214 ENVIRONMENTAL SERVICES COORDINATOR: 12/28/18 1240 ADM IN [place] [place] [address]
--- NOTE | 2018-12-29 16:18 | NUR ---
HERE TO VISIT. EXPRESSED CONCERN OVER PATIENT'S RESPONSE TO TREATMENT. INFORMED SPOUSE THAT IT OFTEN TAKES 3 WEEKS OR MORE FOR THE MEDS TO MAKE A CHANGE IN CONDITION.
[2018-12-29 23:14] VITALS: BP 135/66
--- NOTE | 2018-12-30 00:04 | NUR ---
B.) Patient is more alert and can follow simple directions. Patient ambulates by herself. I.) Provided PM medications. Redircted and reoriented. R.) Compliant with all medications and remains confused. P.) Continue Plan of Care.
[2018-12-30 07:00] VITALS: BP 113/60
--- NOTE | 2018-12-30 09:46 | NUR ---
RECEIVED PATIENT IN DINING ROOM FOR B'FAST, ALERT, CALM, DELUSIONAL. MEDS ADMIN PER ORDERS AFTER MUCH CONVINCING THAT THE MEDS WERE ACTUALLY HERS. QUITE ARGUMENTATIVE. COOPERATIVE WITH POC. CONT POC INCLUDING MEDS AND GROUP THERAPY DIRECTED.
--- NOTE | 2018-12-30 15:13 | PN ---
PATIENT:TOBY KIM MEDICAL RECORD: [id number] LOCATION:[facility] [address] ADMISSION DATE: 12/13/18 PROGRESS NOTE DATE OF SERVICE: 12/29/2018 SUBJECTIVE: The patient's case was discussed with staff. She has no new complaint. OBJECTIVE: The patient did not have a good day yesterday. She was crawling under the table, saying things that were bizarre, playing her imaginary piano. ASSESSMENT: Major depression with psychosis. PLAN: I am going to maintain the patient on her current antidepressant and antipsychotic medication. I am not sure how to explain this setback, but I think her discharge should be postponed. I have given serious thought to other potential diagnoses and I am not able to come up with anything different. It is possible that the family is giving inaccurate history about her cognitive decline and that this is a complicated case of both depression and dementing illness, but they have insisted that she was completely intact a month ago. TRANSINT:[id number] Voice Confirmation ID: [id number] DOCUMENT ID: [id number] OSWALDO WELLS MD at 1513 CC: [id number] DICTATION DATE: 12/29/18 1313 REBAR WORKER: 12/29/18 1658 ADM IN [place] [id number] [place] [address]
--- NOTE | 2018-12-30 19:50 | NUR ---
PATIENT WALKING IN DAY AREA. CONFUSED, DELUSIONAL. CALM AND COOPERATIVE WITH ASSESSEMENT, MEDICATION ADMINSTRATION. MED COMPLIANT. PLESANT WITH STAFF AND PEERS. AMBULATES WITH MODERATE ASSISTANCE WITH ADLS. WILL CONT PLAN OF CARE.
[2018-12-31 05:15] VITALS: BP 130/70
--- NOTE | 2018-12-31 10:00 | NUR ---
Nutrition follow up Cardiac diet with 64% average po intake Ensure ordered on all trays Weight 150.8lb RD following per protocol
[2018-12-31 11:56] VITALS: BP 127/69
--- NOTE | 2018-12-31 15:19 | PN ---
PATIENT:TOBY KIM MEDICAL RECORD: [id number] LOCATION:[facility] [address] ADMISSION DATE: 12/13/18 PROGRESS NOTE DATE OF SERVICE: 12/30/2018 SUBJECTIVE: The patient's case was discussed with staff. She has no new complaint. OBJECTIVE: The patient continues to be quite disorganized. Interestingly, I have just learned information from the patient's daughter that she was having evidence of significant thought and behavior disorganization a year ago. 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 The patient's daughter says she was unable to pack the woman a year ago because she could not understand or figure out the process. ASSESSMENT: 1. Major depression. 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 PLAN: The patient clearly has dementia that has been misdiagnosed based upon history that was initially given that she was perfectly intact a month prior to admission. Unfortunately, I think this is all too often the case that the closeness of a relative can often mask very gradual decline. I suppose, put in another way, there has been a strong level of denial about what is going on. The patient is oriented, but she has other symptoms that are very consistent with a dementing illness. I am going to go ahead and start her on Aricept and recommend placement to the family. TRANSINT:[id number] Voice Confirmation ID: [id number] DOCUMENT ID: [id number] OSWALDO WELLS MD at 1519 CC: [id number] DICTATION DATE: 12/30/18 1534 PUBLIC RELATIONS MANAGER: 12/30/18 1722 ADM IN [facility] [address] [place] [address]
--- NOTE | 2018-12-31 15:29 | NUR ---
ORIENTED TO SELF ONLY.COMPLIANT WITH STAFF AND MEDS.NO OBSERVATION OF HALLUCINATIONS TODAY.WILL CONTINUE WITH PLAN OF CARE,MONITOR FOR CHANGES AND SAFETY.
--- NOTE | 2018-12-31 20:36 | NUR ---
RECEIVED IN HALLWAY. CALM AND COOPERATIVE WITH CARE AND ASSESSMENT. IN GOOD SPIRITS. ENCOURAGE TO EXPRESS NEEDS. REDIRECT AND REORIENT NEEDED. RESTING IN BED WITH EYES CLOSED AT THIS TIME. CONTINUE PLAN OF CARE
[2019-01-01 01:35] VITALS: BP 130/70
[2019-01-01 09:10] VITALS: BP 134/61
--- NOTE | 2019-01-01 12:39 | PN ---
PATIENT:TOBY KIM MEDICAL RECORD: [id number] LOCATION:[facility] [address] ADMISSION DATE: 12/13/18 PROGRESS NOTE DATE OF SERVICE: 12/31/2018 SUBJECTIVE: The patient's case was discussed with staff. She has no new complaint. OBJECTIVE: The patient is in good behavioral control. She is partially oriented. ASSESSMENT: 1. Major depression. 2. Dementia of the Alzheimer's type. PLAN: The patient will be maintained on current medicines. Her family is looking for usp. TRANSINT:[id number] Voice Confirmation ID: [id number] DOCUMENT ID: [id number] OSWALDO WELLS MD at 1239 CC: [id number] DICTATION DATE: 12/31/18 1543 HUMANITIES DEPARTMENT CHAIR: 12/31/18 2358 ADM IN [place] [address] [place] [address]
--- NOTE | 2019-01-01 17:38 | NUR ---
ORIENTED TO SELF ONLY.COMPLIANT WITH STAFF AND MEDS.QUITE,KEEPS TO SELF MUCH OF THE TIME.WILL CONTINUE WITH PLANOF CARE,MONITOR FOR CHANGES AND SAFETY.
[2019-01-01 20:00] VITALS: BP 163/61
--- NOTE | 2019-01-01 22:03 | NUR ---
B.) Patient is alert and oriented to self only. She ambulates by herself. I.) Provided PM medications. Redirected and reoriented. R.) Compliant with all PM medications. Patient remains confused despite redirection. P.) Continue Plan of Care.
--- NOTE | 2019-01-02 08:21 | PN ---
PATIENT:TOBY KIM MEDICAL RECORD: [id number] LOCATION:[facility] ADMISSION DATE: 12/13/18 PROGRESS NOTE DATE OF SERVICE: 01/01/2019 SUBJECTIVE: The patient's case was discussed with staff. She has no new complaint. OBJECTIVE: The patient denies intent to harm herself or others. She is tolerating her medicines well. ASSESSMENT: Major depression. PLAN: Current medicines have been reviewed. I anticipate the patient can be transitioned to a usp soon. utility service worker is working with the family to arrange this placement. TRANSINT:[id number] Voice Confirmation ID: [id number] DOCUMENT ID: [id number] OSWALDO WELLS MD at 0821 CC: [id number] DICTATION DATE: 01/01/19 1409 MINER: 01/01/19 1444 ADM IN [place] [place] [address]
[2019-01-02 09:53] VITALS: BP 151/76
--- NOTE | 2019-01-02 14:01 | NUR ---
ORIENTED TO SELF ONLY.KEEPS TO SELF MOST OF THE TIME.IS COMPLIANT WITH STAFF AND MEDS.NO HALLUCINATIONS OBSERVED.WILL CONTINUE WITH PLAN OF CARE,MONITOR FOR CHANGES AND SAFETY.
[2019-01-02 20:00] VITALS: BP 143/51
--- NOTE | 2019-01-02 23:01 | NUR ---
B) Patient is alert and oriented to self, very confused at times, wanders and looks after other patients at times, I) Administered scheduled medications as ordered, monitored for safety R) Mediation compliant, pleasant and friendly P) Continue plan of care.
[2019-01-03 07:36] VITALS: BP 116/65
--- NOTE | 2019-01-03 12:52 | NUR ---
B) The patient is awake and alert, she converses with staff and peers. She does say "I can hardly open my eyes." She is participating in groups and activities today. She has poor insight into her situation. I) Provide prescribed meds. R) The patient is compliant with meds. P) Continue POC.
--- NOTE | 2019-01-03 15:15 | PN ---
PATIENT:TOBY KIM MEDICAL RECORD: [id number] LOCATION:[facility] [address] ADMISSION DATE: 12/13/18 PROGRESS NOTE DATE OF SERVICE: 01/02/2019 SUBJECTIVE: The patient's case was discussed with staff. She has no new complaint. OBJECTIVE: The patient denies that she would seek to harm herself or others. She is tolerating her medicines well. She has pretty limited insight about her situation. She has not been behaving in a bizarre delusional way, playing the imaginary piano or hiding under furniture anymore and that is certainly an improvement. ASSESSMENT: 1. Major depression. 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 PLAN: The patient will be maintained on current medicines. Long-term prognosis is guarded. She will have a Depakote level checked tomorrow to ensure that it is still in the therapeutic range. TRANSINT:[id number] Voice Confirmation ID: [id number] DOCUMENT ID: [id number] OSWALDO WELLS MD at 1515 CC: [id number] DICTATION DATE: 01/02/19 1544 SPRING FITTER HELPER: 01/02/19 1625 ADM IN [facility] [address] [place] [id number]
[2019-01-03 20:09] VITALS: BP 128/60
--- NOTE | 2019-01-03 22:00 | NUR ---
B.) Patient is alert and oriented to person and place. She ambulates by herself. She is pleasant with staff and other residents. I.) Provided PM medications R.) Compliant with medications P.) Continue Plan of Care.
[2019-01-04 08:19] VITALS: BP 148/67
--- NOTE | 2019-01-04 09:20 | NUR ---
REC'D PT SITTING IN CHAIR IN DAY AREA. RESP EVEN AND NONLABORED. NO DISTRESS NOTED. PT IS ORIENTED TO PLACE AND PERSON. CONFUSION NOTED. AMBULATES PER SELF. PT IS PLESANT WITH STAFF AND PEERS. MED COMPLIANT. COMPLIANT WITH ASSESSMENT AND AM MEDICATIONS. WILL CONT PLAN OF CARE.
--- NOTE | 2019-01-04 11:17 | PN ---
PATIENT:TOBY KIM MEDICAL RECORD: [id number] LOCATION:[facility] ADMISSION DATE: 12/13/18 PROGRESS NOTE DATE OF SERVICE: 01/03/2019 SUBJECTIVE: The patient's case was discussed with staff. She has no new complaint. OBJECTIVE: The patient is better. She is not showing any of the bizarre behaviors she did previously. She has a therapeutic Depakote level of 80. Staff says she is a little bit sedated in the mornings and based on that observation from nursing staff, I am going to reduce her Risperdal to just 1 mg at bedtime. TRANSINT:[id number] Voice Confirmation ID: [id number] DOCUMENT ID: [id number] OSWALDO WELLS MD at 1117 CC: [id number] DICTATION DATE: 01/03/19 1526 HYDRO SPRAYER OPERATOR: 01/03/19 1541 ADM IN [facility] [address] [place] [address]
[2019-01-04 21:57] VITALS: BP 132/52
--- NOTE | 2019-01-04 22:26 | NUR ---
PATIENT IS CONFUSED, QUIET, DIRECTABLE, COMPLIANT WITH MEDS, MAKES NEEDS AND CONCERNS KNOWN, WILL FOLLOW POC
[2019-01-05 07:00] VITALS: BP 116/62
--- NOTE | 2019-01-05 09:06 | NUR ---
PT IS AWAKE AND ALERT. PT IS CALM AND COOPERATIVE WITH ASSESSMENT. PT IS RESTING IN RECLINING CHAIR WITH EYES CLOSED. NO AGGRESSION NOTED. PRESCRIBED MEDICATIONS PROVIDED. MED COMPLIANT. REDIRECT AND REORIENT NEEDED. FALL PRECAUTIONS IN PLACE. WILL CPOC.
--- NOTE | 2019-01-05 09:42 | PN ---
PATIENT:TOBY KIM MEDICAL RECORD: [id number] LOCATION:[facility] [address] ADMISSION DATE: 12/13/18 PROGRESS NOTE DATE OF SERVICE: 01/04/2019 SUBJECTIVE: The patient's case was discussed with staff. She has no new complaint. OBJECTIVE: The patient is calm, but clearly impaired cognitively. ASSESSMENT: 1. Senile dementia of the Alzheimer's type with behavioral disturbances. 2. Major depression. PLAN: The patient will be maintained on current medicines. I anticipate she can be transitioned to the group home tomorrow. TRANSINT:[id number] Voice Confirmation ID: [id number] DOCUMENT ID: [id number] OSWALDO WELLS MD at 0942 CC: [id number] DICTATION DATE: 01/04/19 1122 QUALITY SYSTEM MANAGER: 01/04/19 1216 ADM IN [facility] [address] [place] [address]
[2019-01-05] MEDS ORDERED: LOPRESSOR25 MG PO (10:16)
[2019-01-05] MEDS ORDERED: EFFEXOR100 MG PO (10:16)
[2019-01-05] MEDS ORDERED: RisperDAL PO (10:16)
[2019-01-05] MEDS ORDERED: DONEPEZIL HCL5 MG PO (10:16)
[2019-01-05] MEDS ORDERED: DEPAKOTE500 MG PO (10:16)
--- NOTE | 2019-01-05 15:21 | NUR ---
OFFERED PATIENT A SHOWER. SHE STATED SHE TOOK ONE YESTERDAY AND THAT SHE WOULD TAKE ONE EARLY IN THE MORNING.
[2019-01-05 20:09] VITALS: BP 139/46
--- NOTE | 2019-01-05 23:51 | NUR ---
PATIENT IS CONFUSED, COOPERATIVE, COMPLIANT WITH MED. PLEASANT
[2019-01-06 08:30] VITALS: BP 120/48
--- NOTE | 2019-01-06 10:36 | NUR ---
RECEIVED PATIENT IN DINING ROOM FOR B'FAST, ALERT, CALM, COOPERATIVE, CONFUSED. MEDS ADMIN PER ORDERS WITH COMPLETE MED COMPLIANCE NOTED. COOPERATIVE WITH POC. CONT POC INCLUDING MEDS AND GROUP THERAPY DIRECTED.
--- NOTE | 2019-01-06 14:55 | NUR ---
PERSONAL BELONGINGS RETURNED TO PATIENT. REPORT CALLED TO THE [facility]. ASSISTED TO [facility] FOR TRANPORT TO THE [facility]. DAUGHTER PHONED PATIENT WAS LEAVING THE BUILDING AND WAS MADE AWARE OF PATIENT'S DISCHARGE AND STATED THAT SHE WOULD CALL PATIENT'S SPOUSE AND INFORM HIM TO DIRECTOR OF DANCE MEDS AT [facility] AND THAT PATIENT HAD BEEN TRANSPORTED TO THE [facility]. PATIENT IN GOOD MOOD, CONFUSED, BUT COOPERATIVE. DENIES PAIN, NO S/S DISTRESS.
--- NOTE | 2019-01-06 15:05 | PN ---
PATIENT:TOBY KIM MEDICAL RECORD: [id number] LOCATION:[facility] ADMISSION DATE: 12/13/18 PROGRESS NOTE DATE OF SERVICE: 01/05/2019 SUBJECTIVE: The patient's case was discussed with staff. She has no new complaint. OBJECTIVE: The patient is impaired cognitively. Her mood seems to have significantly improved. ASSESSMENT: 1. Major depression. 2. Dementia. PLAN: The patient will be transitioned out of the hospital tomorrow. That is assuming this level of improvement continues. TRANSINT:[id number] Voice Confirmation ID: [id number] DOCUMENT ID: [id number] OSWALDO WELLS MD at 1505 CC: [id number] DICTATION DATE: 01/05/19 1013 BODY TRIMMER UPHOLSTERER: 01/05/19 1641 ADM IN [facility] [address] [place] [address]
== END 2019-01-06 14:55 | disposition home or self-care (01) | DRG 885 ==
LOC: D.ER 11:48 → D.PSYCH 14:49
PROVIDERS: Emergency Medicine; ADMIT Psychiatry & Neurology Psychiatry; ATTEND Psychiatry & Neurology Psychiatry
DX: F33.3 Major depressive disorder, recurrent, severe with psychotic symptoms (principal); I10 Essential (primary) hypertension; E78.00 Pure hypercholesterolemia, unspecified; E78.5 Hyperlipidemia, unspecified; G62.9 Polyneuropathy, unspecified; E55.9 Vitamin D deficiency, unspecified; M19.90 Unspecified osteoarthritis, unspecified site; N95.9 Unspecified menopausal and perimenopausal disorder